=== PATIENT | female | born 1950 | race American Indian/Alaskan Native ===

== ENCOUNTER 2018-10-23 04:57 | Emergency (ER) | payer MEDICARE ==
[2018-10-23 06:11] VITALS: BP 150/67
--- NOTE | 2018-10-23 06:38 | XRay Report ---
FINAL REPORT PROCEDURE: XR SHOULDER 2+V LT TECHNIQUE: Left shoulder radiographs including AP views in internal and external rotation and abduct ion. CPT 48924 HISTORY: left shoulder pain COMPARISON: No prior studies are available for comparison. FINDINGS: Fracture (s) and/or Dislocation(s): None . Joint space(s): There is mild degenerative arthrosis of the left glenohumeral joint.. Soft tissues: Normal . Bone mineralization: Normal . Foreign bodies: None . IMPRESSION: Is there is no fracture or dislocation. There is mild degenerative arthrosis of the left glenohumeral joint. The soft tissues are unremarkable. The
[2018-10-23] MEDS ORDERED: DECADRON IM ONE (07:32)
[2018-10-23] MEDS ORDERED: NORCO 5/325 PO ONE (07:32)
--- NOTE | 2018-10-23 07:42 | Emergency Department Report ---
ED Upper Extremity Inj HPI - General Chief Complaint: Shoulder Injury Stated Complaint: LEFT SHOULDER PAIN Time Seen by Provider: 10/23/18 07:32 Source: patient Mode of arrival: Ambulatory Limitations: No Limitations - History of Present Illness Initial Comments: 68 yo female who is being seen by her pcp for l frozen shoulder states last night she lost her balance because of the shoulder and fell on the shoulder. She states she has gotten injections and its not helping with shoulder. She has been referred to ortho. We discussed PT. She has no cp or sob; or other symptoms. - Related Data Previous Rx's Medication Instructions Recorded Last Taken Type Naproxen [Naprosyn] 500 mg PO BID PRN #20 tablet 10/23/18 Unknown Rx Allergies Allergy/AdvReac Type Severity Reaction Status Date / Time latex Allergy Itching Verified 09/16/15 15:55 Sulfa (Sulfonamide Allergy Swelling Verified 09/16/15 15:55 Antibiotics) ED Review of Systems ROS: Stated complaint: LEFT SHOULDER PAIN Other details as noted in HPI Comment: All other systems reviewed and negative Constitutional: denies: see HPI Eyes: denies: eye pain Respiratory: denies: see HPI Cardiovascular: denies: palpitations Endocrine: denies: see HPI Gastrointestinal: denies: as per HPI Musculoskeletal: as per HPI. denies: back pain Skin: denies: rash Neurological: denies: weakness Psychiatric: denies: anxiety ED Past Medical Hx - Past Medical History Hx Hypertension: Yes Additional medical history: high cholesterol, Frozen Left Shoulder, - Surgical History Past Surgical History?: Yes Additional Surgical History: hysterectomy - Family History Family history: no significant - Social History Smoking Status: Never Smoker Substance Use Type: None - Medications Home Medications: Home Medications Medication Instructions Recorded Confirmed Last Taken Type Naproxen [Naprosyn] 500 mg PO BID PRN #20 tablet 10/23/18 Unknown Rx ED Physical Exam - General Limitations: No Limitations General appearance: alert - Head Head exam: Present: atraumatic. Absent: normocephalic - Eye Eye exam: Present: normal appearance. Absent: PERRL Pupils: Present: normal accommodation. Absent: irregular - ENT ENT exam: Present: normal exam, mucous membranes moist. Absent: mucous membranes dry - Neck Neck exam: Present: normal inspection. Absent: meningismus - Respiratory Respiratory exam: Present: normal lung sounds bilaterally. Absent: respiratory distress - Cardiovascular Cardiovascular Exam: Present: regular rate. Absent: bradycardia - GI/Abdominal GI/Abdominal exam: Present: soft - Rectal Rectal exam: Present: deferred - Expanded Upper Extremity Exam Left Shoulder Exam: Absent: tenderness, swelling, abrasion, laceration, ecchymosis, deformity, crepidus, dislocation, erythema, tenderness over AC joint Upper Arm exam: Present: normal inspection Elbow exam: Present: normal inspection Vascular: Present: normal capillary refill, radial pulse, brachial pulse, ulnar pulse - Back Exam Back exam: Present: normal inspection, full ROM - Neurological Exam Neurological exam: Present: alert, oriented X3 - Psychiatric Psychiatric exam: Present: normal affect, normal mood - Skin Skin exam: Present: warm, dry, intact ED Course Vital Signs 10/23/18 06:01 Temperature 98.4 F Pulse Rate 80 Respiratory 14 Rate Blood Pressure 150/67 O2 Sat by Pulse 97 Oximetry ED Medical Decision Making - Radiology Data Radiology results: report reviewed neg - Medical Decision Making xray neg pt educated on frozen shoulder medicated for pain dc home with nsaid and arm sling for comfort will see ortho. - Differential Diagnosis ro fx Critical care attestation.: If time is entered above; I have spent that time in minutes in the direct care of this critically ill patient, excluding procedure time. ED Disposition Clinical Impression: Frozen shoulder Disposition: DC- TO HOME OR SELFCARE Is pt being admited?: No Does the pt Need Aspirin: No Condition: Stable Instructions: Adhesive Capsulitis (ED) Additional Instructions: sling for comfort meds per home routine meds as ordered today follow up with ortho Thursday warm compresses will help Prescriptions: Naproxen [Naprosyn] 500 mg PO BID PRN #20 tablet PRN Reason: Pain Referrals: RHONDA LAUGHLIN MD [Primary Care Provider] - 3-5 Days TERRY WEEMS MD [Staff Physician] - 3-5 Days Time of Disposition: 07:40
== END 2018-10-23 07:51 | disposition home or self-care (01) ==
LOC: ED 04:57
DX: M75.02 Adhesive capsulitis of left shoulder (principal); I10 Essential (primary) hypertension; E78.00 Pure hypercholesterolemia, unspecified; Z90.710 Acquired absence of both cervix and uterus; Z88.2 Allergy status to sulfonamides; Z91.040 Latex allergy status
CPT/HCPCS: 73030; 96372; 99284; J1100